=== PATIENT | male | born 1970 | race Caucasian/White ===

== ENCOUNTER 2023-05-31 11:18 | Emergency (ER) | payer SELFPAY ==
[2023-05-31 12:29] LABS: BASOPHILS ABSOLUTE AUTO 0.1 K/uL (0.0-0.1); BASOPHILS PERCENT AUTO 0.9 % (0.0-1.5); EOSINOPHILS ABSOLUTE AUTO 0.1 K/uL (0.0-0.7); EOSINOPHILS PERCENT AUTO 2.1 % (0.0-7.0); HEMATOCRIT 36.2 % (38.0-50.0); HEMOGLOBIN 11.3 g/dL (13.0-17.0); LYMPHOCYTES ABSOLUTE AUTO 2.1 K/uL (0.6-2.4); LYMPHOCYTES PERCENT AUTO 36.4 % (16.0-40.0); MEAN CORPUSCULAR HEMOGLOBIN 26.8 pg (27.0-32.0); MEAN CORPUSCULAR HGB CONC 31.2 g/dL (31.0-37.0); MONOCYTES ABSOLUTE AUTO 0.4 K/uL (0.0-0.8); MONOCYTES PERCENT AUTO 7.5 % (0.0-15.0); NEUTROPHILS PERCENT AUTO 53.1 % (48.0-80.0); NRBC ABSOLUTE 0 K/uL; PLATELET COUNT,PLT 284 K/uL (150-400); RED BLOOD CELL COUNT 4.21 M/uL (4.50-5.90); WHITE BLOOD CELL COUNT,WBC 5.71 K/uL (4.0-11.0)
[2023-05-31 12:50] LABS: INR 0.96 (0.86-1.11)
[2023-05-31 12:59] LABS: A/G RATIO 0.9 (0.9-1.6); BILIRUBIN TOTAL 0.2 mg/dL (0.2-1.0); CALCIUM 8.2 mg/dL (8.5-10.1); CARBON DIOXIDE,CO2 31.3 mmol/L (21.0-32.0); CREATININE 0.7 mg/dL (0.8-1.3); EST CRCL DRUG DOSING (CG) 119.43 mL/min; PROTEIN TOTAL,TP 6.4 g/dL (6.4-8.2)
== END 2023-05-31 13:51 | disposition home or self-care (01) ==
LOC: MW.ED 11:18
DX: K46.9 Unspecified abdominal hernia without obstruction or gangrene (principal)
CPT/HCPCS: 36415; 80053; 85025; 85610; 86850; 86900; 86901; 99283

== ENCOUNTER 2023-06-13 06:37 | Day surgery (SDC) | payer MEDICAID ==
[~2023-06-13 06:37] MED LIST: Lactated Ringers 1,000 ML IV SCH; ceFAZolin 2 GM in Sodium Chloride 0.9% 50 ML IV ONE
[2023-06-13] MEDS ORDERED: Phenylephrine HCl 0.5 MG/5 ML AMP INJECT ONE (06:38)
[2023-06-13] MEDS ORDERED: Morphine 2 MG/ML SYRINGE IVPUSH PRN (07:05)
[2023-06-13] MEDS ORDERED: fentaNYL 50 MCG/ML SDV IVPUSH PRN (07:05)
[2023-06-13] MEDS ORDERED: Ondansetron 4 MG/2 ML SDV IVPUSH PRN (07:05)
[2023-06-13] MEDS ORDERED: HYDROmorphone 1 MG/ML Syringe IVPUSH PRN (07:05)
[2023-06-13] MEDS ORDERED: Albuterol 0.083% 2.5 MG/3 ML Neb Soln NEB PRN (07:05)
[2023-06-13] MEDS ORDERED: Metoclopramide 10 MG/2 ML SDV IVPUSH PRN (07:05)
[2023-06-13] MEDS ORDERED: Naloxone 0.4 MG/ML SDV IVPUSH PRN (07:05)
[2023-06-13] MEDS ORDERED: droPERidol 5 MG/2 ML SDV IVPUSH PRN (07:05)
[2023-06-13] MEDS ORDERED: Bupivacaine 0.5% 30 ML SDV ONE (07:21)
[2023-06-13] MEDS ORDERED: ceFAZolin 1 GM Vial ONE (07:26)
[2023-06-13] MEDS ORDERED: Ropivacaine 0.5% 5 MG/ML 30 ML SDV ONE (07:32)
[2023-06-13] MEDS ORDERED: Famotidine 20 MG/2 ML SDV ONE (07:33)
[2023-06-13] MEDS ORDERED: Morphine 10 MG/ML SDV ONE (07:35)
[2023-06-13] MEDS ORDERED: Water For Injection, Sterile 20 ML ONE ×2 (07:37→09:00)
[2023-06-13] MEDS ORDERED: Propofol 200 MG/20 ML SDV ONE (07:38)
[2023-06-13] MEDS ORDERED: Rocuronium Bromide 50 MG/5 ML Syringe ONE ×2 (07:39→08:42)
[2023-06-13] MEDS ORDERED: Lidocaine 2% 5 ML SDV ONE (07:39)
[2023-06-13] MEDS ORDERED: ceFAZolin 2 GM Vial ONE (07:39)
[2023-06-13] MEDS ORDERED: Ondansetron 4 MG/2 ML SDV ONE ×2 (07:39→08:42)
[2023-06-13] MEDS ORDERED: Dexamethasone 4 MG/ML 5 ML MDV ONE ×2 (07:39→08:42)
[2023-06-13] MEDS ORDERED: fentaNYL 250 MCG/5 ML SDV ONE (07:44)
[2023-06-13] MEDS ORDERED: Water For Injection, Sterile 40 ML ONE (07:48)
[2023-06-13] MEDS ORDERED: Sugammadex Sodium 200 MG/2 ML VIAL ONE (07:48)
[2023-06-13] MEDS ORDERED: ePHEDrine 50 MG/ML SDV ONE ×2 (08:42→09:38)
[2023-06-13] MEDS ORDERED: Ketorolac 30 MG/ML SDV ONE ×2 (08:42→10:29)
[2023-06-13] MEDS ORDERED: Glycopyrrolate 0.2 MG/ML SDV ONE (08:42)
[2023-06-13] MEDS ORDERED: Morphine 4 MG/ML Syringe IVPUSH PRN (11:06)
[2023-06-13] MEDS ORDERED: Acetaminophen/HYDROcodone 325-5 MG Tab PO PRN (11:06)
[2023-06-13] MEDS ORDERED: Lactated Ringers 1,000 ML IV SCH (11:15)
== END 2023-06-13 12:10 | disposition home or self-care (01) ==
LOC: MW.SDS 06:37
PROVIDERS: ATTEND Surgery
DX: K40.20 Bilateral inguinal hernia, without obstruction or gangrene, not specified as recurrent (principal); D17.6 Benign lipomatous neoplasm of spermatic cord; F10.10 Alcohol abuse, uncomplicated; Z87.891 Personal history of nicotine dependence; Z98.890 Other specified postprocedural states
CPT/HCPCS: 49505; 64488; J0131; J0690; J1100; J1885; J2270; J2371; J2405; J2704; J2795; J3010; J3490; J7120; C1781

== ENCOUNTER 2023-08-03 06:25 | Inpatient (IN) | payer MEDICAID ==
[~2023-08-03 06:25] MED LIST changes: +Famotidine 20 MG/2 ML SDV IVPUSH SCH; -Lactated Ringers 1,000 ML IV SCH; +Scopalamine 1mg/3day Transdermal Patch TRDERM SCH; -ceFAZolin 2 GM in Sodium Chloride 0.9% 50 ML IV ONE
[2023-08-03] MEDS ORDERED: HYDROmorphone 1 MG/ML Syringe IVPUSH PRN (06:58)
[2023-08-03] MEDS ORDERED: Naloxone 0.4 MG/ML SDV IVPUSH PRN (06:58)
[2023-08-03] MEDS ORDERED: fentaNYL 50 MCG/ML SDV IVPUSH PRN (06:58)
[2023-08-03] MEDS ORDERED: Albuterol 0.083% 2.5 MG/3 ML Neb Soln NEB PRN (06:58)
[2023-08-03] MEDS ORDERED: Ondansetron 4 MG/2 ML SDV IVPUSH PRN ×2 (06:58→10:49)
[2023-08-03] MEDS ORDERED: Morphine 2 MG/ML SYRINGE IVPUSH PRN ×2 (06:58→10:49)
[2023-08-03] MEDS ORDERED: droPERidol 5 MG/2 ML SDV IVPUSH PRN (06:58)
[2023-08-03] MEDS ORDERED: Metoclopramide 10 MG/2 ML SDV IVPUSH PRN (06:58)
[2023-08-03] MEDS ORDERED: Ropivacaine 49.25 ML, Ketorolac 30 MG, EPINEPHrine 0.5 MG, cloNIDine 80 MCG in Sodium C... INJECT SCH (07:00)
[2023-08-03] MEDS: Lactated Ringers 1,000 ML IV SCH ×2 (07:06→15:37)
[2023-08-03] MEDS ORDERED: Ropivacaine 0.5% 5 MG/ML 30 ML SDV ONE (07:07)
[2023-08-03] MEDS ORDERED: fentaNYL 100 MCG/2 ML SDV ONE (07:17)
[2023-08-03] MEDS ORDERED: propofoL 0 ML ONE (07:17)
[2023-08-03] MEDS ORDERED: propofoL 50 ML ONE (07:19)
[2023-08-03] MEDS ORDERED: Ketamine 500 mg/10 ML MDV ONE (07:21)
[2023-08-03] MEDS ORDERED: Midazolam 1 MG/ML 2 ML SDV ONE (07:25)
[2023-08-03] MEDS ORDERED: Tranexamic Acid IN NACL,ISO-OS 1,000 MG in Premix Bag 1 BAG IV SCH ×2 (08:00)
[2023-08-03] MEDS ORDERED: ceFAZolin 2 GM in Sodium Chloride 0.9% 50 ML IV SCH (08:00)
[2023-08-03] MEDS ORDERED: Tranexamic Acid 1,000 MG/10 ML Vial ONE (08:36)
[2023-08-03] MEDS ORDERED: ceFAZolin 2 GM Vial ONE (08:59)
[2023-08-03] MEDS ORDERED: Ondansetron 4 MG/2 ML SDV ONE (08:59)
[2023-08-03] MEDS ORDERED: Glycopyrrolate 0.2 MG/ML SDV ONE (08:59)
[2023-08-03] MEDS ORDERED: ePHEDrine 50 MG/ML SDV ONE (08:59)
[2023-08-03] MEDS ORDERED: Propofol 200 MG/20 ML SDV ONE (09:57)
[2023-08-03] MEDS ORDERED: Bisacodyl 10 MG Supp RECTAL PRN (10:49)
[2023-08-03] MEDS ORDERED: diphenhydrAMINE 25 MG Cap PO PRN (10:49)
[2023-08-03] MEDS ORDERED: Sodium Chloride 0.9% 10 ML Syringe FLUSH PRN (10:49)
[2023-08-03] MEDS ORDERED: traMADol 50 MG Tab PO PRN (10:49)
[2023-08-03] MEDS ORDERED: Sodium Chloride 0.9% 2.5 ML Syringe FLUSH PRN (10:49)
[2023-08-03] MEDS ORDERED: Aluminum Hydroxide/Magnesium Hydroxide/Simethicone XS Susp 30 ML Cup PO PRN (10:49)
[2023-08-03] MEDS: Acetaminophen 325 MG Tab PO SCH ×3 (12:19→21:00)
[2023-08-03] MEDS: Ketorolac 30 MG/ML SDV IVPUSH SCH ×3 (12:20→22:19)
[2023-08-03] MEDS: oxyCODONE 5 MG Tab PO PRN (15:36)
[2023-08-03] MEDS: ceFAZolin 2 GM in Sodium Chloride 0.9% 50 ML IV SCH ×2 (15:36→23:55)
[2023-08-03] MEDS: Aspirin 325 MG Tab PO SCH (18:44)
[2023-08-03] MEDS: Docusate Sodium 100 MG Cap PO SCH (21:01)
[2023-08-04] MEDS: oxyCODONE 5 MG Tab PO PRN ×2 (01:44→09:17)
[2023-08-04] MEDS: Ketorolac 30 MG/ML SDV IVPUSH SCH (04:18)
[2023-08-04] MEDS: Acetaminophen 325 MG Tab PO SCH ×3 (04:19→09:11)
[2023-08-04 06:38] LABS: HEMATOCRIT 32.5 % (42.0-52.0); HEMOGLOBIN 10.6 g/dL (14.0-18.0)
[2023-08-04] MEDS ORDERED: Ibuprofen 800 MG Tab PO PRN (08:52)
[2023-08-04] MEDS ORDERED: Famotidine 20 MG Tab PO SCH (09:00)
[2023-08-04] MEDS ORDERED: Ibuprofen 800 MG Tab PO SCH (09:00)
[2023-08-04] MEDS ORDERED: Polyethylene Glycol 3350 Powder 17 GM Packet PO SCH (09:00)
[2023-08-04] MEDS: Aspirin 325 MG Tab PO SCH (09:13)
[2023-08-04] MEDS: Docusate Sodium 100 MG Cap PO SCH (09:14)
== END 2023-08-04 11:25 | disposition home or self-care (01) | DRG 470 ==
LOC: MW.SDS 06:25 → MW.MS 06:26 → EDSTATUS 08:00 → MW.MS 11:18
PROVIDERS: ADMIT Orthopaedic Surgery; ATTEND Orthopaedic Surgery
PROC: 0SR906Z Replacement of Right Hip Joint with Oxidized Zirconium on Polyethylene Synthetic Substitute, Open Approach (ICD-10-PCS; principal; 2023-08-03 08:00)
DX: M16.11 Unilateral primary osteoarthritis, right hip (principal); F10.10 Alcohol abuse, uncomplicated; Z87.891 Personal history of nicotine dependence; Z98.890 Other specified postprocedural states; Z79.899 Other long term (current) drug therapy
CPT/HCPCS: 01214; 36415; 73501-26-RT; 73501-RT; 85014; 85018; 86850; 86900; 86901; 97110-GP; 97162-GP; 97530-GP; A9270-GY; C1713; C1776; J0131; J0171; J0690; J0735; J1885; J2250; J2405; J2704; J2795; J3010; J3490; J7120